=== PATIENT | male | born 1975 | race Caucasian/White ===

== ENCOUNTER 2017-05-16 08:16 | Emergency (ER) | payer OTHER ==
[~2017-05-16] VITALS: Ht 175.3 cm; Wt 132.5 kg
[2017-05-16 08:18] VITALS: Ht 175.3 cm; Wt 132.5 kg
[2017-05-16] MEDS ORDERED: morphine 4 MG/ML VIAL IV STA (08:40)
[2017-05-16] MEDS ORDERED: ONDANSETRON 4 MG INJ IV STA (08:40)
[2017-05-16] MEDS ORDERED: SOD CHLORIDE 0.9% 1,000 ML IV STA ×2 (08:40→10:40)
--- NOTE | 2017-05-16 09:05 | ERD ---
ER Documentation Chief Complaint Date/Time DATE: 05/16/17 TIME: 09:03 Chief Complaint rlq pain since last night HPI This is a 41-year-old male with no past medical history that presents to the emergency department complaining of a sudden onset of right lower quadrant abdominal pain that began at roughly 9 PM, 12 hours prior to arrival. The patient indicates that the onset of pain it was 10 out of 10 in intensity. The pain has been intermittent. He does indicate that it now started to radiate to his back and right upper quadrant. He indicates the pain is 6 out of 10 at this current time after he took Pepto-Bismol. He describes the pain as a sharp stabbing pain. There is no alleviating or exacerbating factors to the pain. He states he has had no fevers no shaking or chills. He states his urine has been very dark in color since the onset of his pain but he denies any frequency urgency or dysuria and no gross hematuria. He denies any recent travel. He has no past surgical history. He does indicate that over the past 4 weeks he has had intermittent loose watery stools. He denies any recent hospitalizations or antibiotic use. Indicates his last meal was at 6 PM, 15 hours prior to arrival. ROS All systems reviewed and are negative except as per history of present illness. Medications Home Meds Reported Medications Garlic (Garlic) 1 Each Tablet, 2 EACH PO NEEDED, TAB 05/16/17 Allergies Allergies: Coded Allergies: No Known Allergy (Unverified , 05/16/17) PMhx/Soc Medical and Surgical Hx: pt denies Medical Hx, pt denies Surgical Hx Hx Alcohol Use: No Hx Substance Use: No Hx Tobacco Use: No Physical Exam Vitals Vital Signs Date Time Temp Pulse Resp B/P Pulse Ox O2 Delivery O2 Flow Rate FiO2 05/16/17 08:18 98.1 97 18 164/94 99 Physical Exam Constitutional:Well-developed. Well-nourished. HEENT:Normocephalic. Atraumatic.Pupils were equal round reactive to light. Moist mucous membranes.No tonsillar exudates. Neck: No nuchal rigidity. No lymphadenopathy. No posterior cervical spine tenderness or step-offs. Respiratory: Not using accessory muscles of respiration.Lungs were clear to auscultation bilaterally. No rhonchi. No rales. No wheezing. Cardiovascular: Regular rate regular rhythm.No murmurs. No rubs were appreciated.S1, S2 normal. Distal pulses are palpable 2+ bilaterally. GI: Abdomen was soft. Tenderness in the right lower quadrant with negative psoas sign and obturator sign is negative. Non Distended. No pulsatile abdominal masses or bruits. No rebound. No guarding. Bowel sounds were present and normal. Muscle skeletal: Full range of motion of both the upper and lower extremities bilaterally.Normal muscle tone.No assymetrical calf tenderness or swelling. Skin: No petechia, no purpura. No lesions on the palms or the soles of the feet. No maculopapular rash. NEURO: Patient was alert, awake, orientated x3.No facial droop. Gait observed and normal with no ataxia.Speech had regular rate and rhythm. No focal neurological deficits. Result Diagram: 05/16/17 0850 05/16/17 0850 Results 24 hrs Laboratory Tests Test 05/16/17 08:50 05/16/17 09:06 White Blood Count 9.810^3/ul Red Blood Count 5.4710^6/ul Hemoglobin 15.8g/dl Hematocrit 46.7% Mean Corpuscular Volume 85.4fl Mean Corpuscular Hemoglobin 28.9pg Mean Corpuscular Hemoglobin Concent 33.8g/dl Red Cell Distribution Width 13.0% Platelet Count 29710^3/UL Mean Platelet Volume 10.2fl Neutrophils % 69.4% Lymphocytes % 22.6% Monocytes % 5.9% Eosinophils % 1.2% Basophils % 0.5% Nucleated Red Blood Cells % 0.0/100WBC Neutrophils # 6.810^3/ul Lymphocytes # 2.210^3/ul Monocytes # 0.610^3/ul Eosinophils # 0.110^3/ul Basophils # 0.110^3/ul Nucleated Red Blood Cells # 0.010^3/ul Prothrombin Time 12.7Sec Prothrombin Time Ratio 1.0 INR International Normalized Ratio 0.95 Activated Partial Thromboplast Time 31.9Sec Sodium Level 145mmol/L Potassium Level 5.1mmol/L Chloride Level 99mmol/L Carbon Dioxide Level 29mmol/L Anion Gap 22 Blood Urea Nitrogen 10mg/dl Creatinine 0.75mg/dl Glucose Level 120mg/dl Calcium Level 9.4mg/dl Total Bilirubin 0.6mg/dl Direct Bilirubin 0.00mg/dl Indirect Bilirubin 0.6mg/dl Aspartate Amino Transf (AST/SGOT) 109IU/L Alanine Aminotransferase (ALT/SGPT) 204IU/L Alkaline Phosphatase 97IU/L Troponin I < 0.012ng/ml Total Protein 9.3g/dl Albumin 5.0g/dl Globulin 4.30g/dl Albumin/Globulin Ratio 1.16 Amylase Level 71U/L Lipase 31U/L Urine Color STRAW Urine Clarity CLEAR Urine pH 6.0 Urine Specific Leiter 1.006 Urine Ketones NEGATIVEmg/dL Urine Nitrite NEGATIVEmg/dL Urine Bilirubin NEGATIVEmg/dL Urine Urobilinogen NEGATIVEmg/dL Urine Leukocyte Esterase NEGATIVELeu/ul Urine Microscopic RBC 2/HPF Urine Microscopic WBC 0/HPF Urine Hemoglobin 2+mg/dL Urine Glucose NEGATIVEmg/dL Urine Total Protein NEGATIVEmg/dl Current Medications Medications (Trade) Dose Ordered Sig/Teresa Route PRN Reason Start Time Stop Time Status Last Admin Dose Admin Sodium Chloride (NS) 1,000 ml @ 1,000 mls/hr Q1H STAT IV 05/16/17 08:40 05/16/17 09:39 DC 05/16/17 08:48 Morphine Sulfate (morphine) 4 mg ONCE STAT IV 05/16/17 08:40 05/16/17 08:42 DC 05/16/17 08:50 Ondansetron HCl (Zofran Inj) 4 mg ONCE STAT IV 05/16/17 08:40 05/16/17 08:42 DC 05/16/17 08:49 IV Flush 10 ml 10 ml STK-MED ONCE .ROUTE 05/16/17 09:54 05/16/17 09:55 DC Sodium Chloride (NS) 100 ml @ ud STK-MED ONCE .ROUTE 05/16/17 09:54 05/16/17 09:55 DC Iohexol 150 ml 150 ml STK-MED ONCE .ROUTE 05/16/17 09:54 05/16/17 09:55 DC Sodium Chloride (NS) 1,000 ml @ 1,000 mls/hr Q1H STAT IV 05/16/17 10:40 05/16/17 11:39 DC 05/16/17 10:55 Ketorolac Tromethamine (Toradol) 30 mg ONCE STAT IV 05/16/17 10:40 05/16/17 10:41 DC 05/16/17 10:55 Tamsulosin HCl 0.4 mg 0.4 mg ONCE ONCE PO 05/16/17 11:00 05/16/17 11:01 DC 05/16/17 11:03 Ciprofloxacin/ Dextrose (Cipro Ivpb) 200 ml @ 200 mls/hr ONCE ONCE IVPB 05/16/17 11:00 05/16/17 11:59 DC 05/16/17 11:02 Procedures/MDM This patient presented to the emergency department with abdominal pain and was seen and evaluated by myself. My differential diagnosis included but was not limited to abdominal aortic aneurysm, appendicitis, pancreatitis, perforated peptic ulcer, perforated viscus, Boerhaaves syndrome or visceral pain such as diverticulitis, DKA, esophagitis, hepatitis or bowel obstruction. The patient was placed on a cardiac surgeon, continuous pulse oximetry, and IV access was established by nursing staff. The patient received intravenous morphine and Zofran for analgesic control I did obtain a 12-lead EKG tracing to rule out atypical myocardial infarction. 12 Lead EKG tracing ordered and reviewed by myself showed: Normal sinus rhythm of 80 bpm and no arrhythmia. IN interval normal. QRS duration normal. No ST segment elevation No ST segment depression. No changes consistent with acute ischemia. I obtained a CT scan of the abdomen on reviewed by the radiologist as well as myself and indicated the followin mm obstructing calculus lodged within the right ureterovesical junction with mild ipsilateral hydroureteronephrosis and perinephric inflammation. Normal appendix. Hepatic steatosis. The patient had mild transaminitis. His BUN and creatinine were within normal limits. The patient had received venous morphine Dilaudid Toradol and was given Flomax. The patient was making urine without any difficulty. The patient had a urine culture obtained and was given IV ciprofloxacin to prevent secondary bacterial infection. I spoke with the patient indicated that I did feel he required admission due to an obstructive calculus causing obstructive uropathy. However the patient stated he wanted to be discharged home and would like to follow-up on an outpatient basis with urologist as he had to go to work. The patient will be sent home with prescription of ciprofloxacin Tiffin for analgesic control and I instructed him that he can return to the emergency department at any time due to the severity of his condition. The patient was discharged home in fair condition. They were instructed to return to the emergency department at any time if there was any worsening of their condition. The patient stated they would follow up with their PCP in the next 24-48 hours to initiate a suitable medication regimen under the care of their PCP as well as to allow their PCP to monitor any drug reactions. The patient was discharged home with prescriptions after they gave informed consent to the new medication. They were also fully informed by myself on the adverse effects and adverse drug interactions in order to provide adequate safeguards to prevent possible adverse reactions to medications. Departure Diagnosis: Primary Impression: Kidney stone on right side Condition: SHARMILA Lopez May 16, 2017 09:05
--- NOTE | 2017-05-16 09:13 | RADRPT ---
PROCEDURE: XR Chest. CLINICAL INDICATION: Shortness of breath. TECHNIQUE: A single portable view of the chest was obtained. COMPARISON: None FINDINGS: The cardiomediastinal silhouette is within normal limits. The lungs and pleural spaces are clear. The soft tissues and osseous structures are unremarkable. IMPRESSION: No acute cardiopulmonary disease. RPTAT: HPNM Physician Lilian Date Time Electronically viewed and signed by Pito Dawn Physician on 05/16/2017 09:12 /
[2017-05-16 09:18] LABS: BASOPHIL # 0.1 10^3/ul (0.0-0.1); BASOPHILS % 0.5 % (0.0-2.0); EOSINOPHILS # 0.1 10^3/ul (0.0-0.5); EOSINOPHILS % 1.2 % (0.0-7.0); HEMATOCRIT 46.7 % (42.0-52.0); HEMOGLOBIN 15.8 g/dl (14.0-18.0); LYMPHOCYTES # 2.2 10^3/ul (0.8-2.9); LYMPHOCYTES % 22.6 % (15.0-51.0); MEAN CORPUSCULAR HEMOGLOBIN 28.9 pg (29.0-33.0); MEAN CORPUSCULAR HGB CONC 33.8 g/dl (32.0-37.0); MEAN CORPUSCULAR VOLUME 85.4 fl (82.0-101.0); MEAN PLATELET VOLUME 10.2 fl (7.4-10.4); MONOCYTE # 0.6 10^3/ul (0.3-0.9); MONOCYTES % 5.9 % (0.0-11.0); NEUTROPHIL # 6.8 10^3/ul (1.6-7.5); NEUTROPHILS % 69.4 % (39.0-77.0); PLATELET COUNT 251 10^3/UL (140-415); RED BLOOD COUNT 5.47 10^6/ul (4.70-6.10); WHITE BLOOD COUNT 9.8 10^3/ul (4.8-10.8)
[2017-05-16 09:31] LABS: ADD UMIC YES; UR ASCORBIC ACID NEGATIVE (NEGATIVE); UR BILIRUBIN (Dip) NEGATIVE (NEGATIVE); UR BLOOD (Dip) 2+ mg/dL (NEGATIVE); UR CLARITY CLEAR (CLEAR); UR COLOR STRAW (YELLOW); UR GLUCOSE (Dip) NEGATIVE (NEGATIVE); UR KETONES (Dip) NEGATIVE (NEGATIVE); UR LEUKOCYTE ESTERASE (Dip) NEGATIVE Leu/ul (NEGATIVE); UR NITRITE (Dip) NEGATIVE (NEGATIVE); UR RBC 2 /HPF (0-5); UR SPECIFIC GRAVITY (Dip) 1.006 (1.003-1.030); UR TOTAL PROTEIN (Dip) NEGATIVE (NEGATIVE); UR UROBILINOGEN (Dip) NEGATIVE (NEGATIVE)
[2017-05-16 09:38] LABS: INR 0.95; PROTIME 12.7 Sec (12.2-14.2)
[2017-05-16 09:39] LABS: PARTIAL THROMBOPLASTIN TIME 31.9 Sec (25.0-35.0)
[2017-05-16 09:41] LABS: ALANINE AMINOTRANSFERASE 204 IU/L (13-69); ALBUMIN/GLOBULIN RATIO 1.16; ALKALINE PHOSPHATASE 97 IU/L (42-121); AMYLASE 71 U/L (11-123); ANION GAP 22 (8-16); ASPARTATE AMINO TRANSFERASE 109 IU/L (15-46); BILIRUBIN,INDIRECT 0.6 mg/dl (0-1.1); BILIRUBIN,TOTAL 0.6 mg/dl (0.2-1.3); BLOOD UREA NITROGEN 10 mg/dl (7-20); CALCIUM 9.4 mg/dl (8.4-10.2); CARBON DIOXIDE 29 mmol/L (21-31); CHLORIDE 99 mmol/L (97-110); CREATININE 0.75 mg/dl (0.61-1.24); GLUCOSE 120 mg/dl (70-220); POTASSIUM 5.1 mmol/L (3.5-5.1); SODIUM 145 mmol/L (135-144); TOTAL PROTEIN 9.3 g/dl (6.1-8.1)
[2017-05-16 09:54] LABS: TROPONIN-I < 0.012 ng/ml (0.00-0.12)
[2017-05-16] MEDS ORDERED: IOHEXOL 300MG/ML 150 ML BTL ONE (09:54)
[2017-05-16] MEDS ORDERED: SOD CHLORIDE 0.9% 100 ML ONE (09:54)
--- NOTE | 2017-05-16 10:13 | RADRPT ---
PROCEDURE: CT Abdomen and Pelvis with contrast. CLINICAL INDICATION: Abdominal pain. TECHNIQUE: Routine abdominopelvic CT was performed following administration of intravenous contras t and reformatted in the axial, coronal, sagittal planes. Intravenous contrast: 100 cc of Omnipaque 300. Radiation dose: CTDIvol (mGy) = 23.8; total DLP (mGy-cm) = 1631. One or more of the following radiation dose techniques were used: -Automated exposure control. -Adjust of the mA and/or kV according to patient size. -Use of iterative reconstruction technique. COMPARISON: None. FINDINGS: There are steatotic changes suggested within the liver. Gallbladder, biliary system, pancreas, adre nal glands, and spleen are normal. There is a 4 mm obstructing calculus lodged within the right UVJ with mild ipsilateral hydroureteron ephrosis and perinephric inflammation. Normal left kidney and collecting system. No abnormal bowel wall thickening or inflammation. The appendix is normal. No free fluid or fluid collection. IMPRESSION: 4 mm obstructing calculus lodged within the right ureterovesical junction with mild ipsilateral hydr oureteronephrosis and perinephric inflammation. Normal appendix. Hepatic steatosis. RPTAT: EE .Johnathan Enamorado MD, MD Date Time Electronically viewed and signed by .Johnathan Enamorado MD, on 05/16/2017 10:18 .C/
[2017-05-16] MEDS ORDERED: KETOROLAC 30 MG INJ IV STA (10:40)
[2017-05-16] MEDS ORDERED: TAMSULOSIN (SR) 0.4 MG CAP PO ONE (11:00)
[2017-05-16] MEDS ORDERED: CIPROFLOXACIN 400MG/D5W 200 ML IVPB ONE (11:00)
[2017-05-16] MEDS ORDERED: GARL1TAB PO (11:13)
[2017-05-16] MEDS ORDERED: HYDR-906 PO (12:08)
[2017-05-16] MEDS ORDERED: CIPR500T4 PO (12:08)
[2017-05-16] MEDS ORDERED: TAMS-14 PO (12:08)
[2017-05-16 12:31] VITALS: BP 126/76; PULSE 74; RESP 19; TEMP 98.4
== END 2017-05-16 12:34 | disposition home or self-care (01) ==
LOC: FTE 08:16
DX: N20.0 Calculus of kidney (principal)
CPT/HCPCS: 36415; 71010; 74177; 80053; 81001; 82150; 83690; 84484; 85025; 85610; 85730; 87040; 87086; 93005; 96361; 96374; 96375; J0744; J1885; J2270; J2405; J7030; Q9967; Z7502; Z7610

== ENCOUNTER 2018-10-15 10:53 | Emergency (ER) | payer MEDICAID, OTHER ==
[~2018-10-15] VITALS: Wt 133.4 kg
[~2018-10-15 10:53] MED LIST: CIPR500T4 PO; GARL1TAB2 PO; HYDR-4011 PO; TAMS-14 PO
[2018-10-15] MEDS ORDERED: SOD CHLORIDE 0.9% 1,000 ML IV STA (12:03)
--- NOTE | 2018-10-15 12:54 | ERD ---
ER Documentation Chief Complaint Chief Complaint LEFT SIDED ABD PAIN X 1 WEEK DENIES N/V HPI This is a 42-year-old male with a history of abdominal bloating and cramping in the past and GERD who presents to the ER for evaluation of left-sided abdominal pain. The patient states that he has had left-sided abdominal pain for 1 weeks duration. He denies any nausea or vomiting associated with this denies any fevers or chills or diarrhea. Patient came to the ER today for evaluation of symptoms and denies any aggravating or relieving factors for his symptoms ROS All systems reviewed and are negative except as per history of present illness. Medications Home Meds Discontinued Reported Medications Garlic (Garlic) 1 Each Tablet, 2 EACH PO NEEDED, TAB 05/16/17 Discontinued Scripts Hydrocodone/Acetaminophen (Goodwin 5-325 Tablet) 1 Each Tablet, 1 TAB PO Q6H PRN for PAIN, #20 TAB Prov:SHARMILA BARROSO MD 05/16/17 Ciprofloxacin Hcl* (Ciprofloxacin Hcl*) 500 Mg Tablet, 500 MG PO BID for 10 Days, TAB Prov:SHARMILA BARROSO MD 05/16/17 Tamsulosin Hcl* (Flomax*) 0.4 Mg Cap.er.24h, 0.4 MG PO QPM, #30 CAP Prov:SHARMILA BARROSO MD 05/16/17 Allergies Allergies: Coded Allergies: No Known Allergy (Unverified , 05/16/17) PMhx/Soc Medical and Surgical Hx: pt denies Medical Hx Hx Alcohol Use: Yes Hx Substance Use: No Hx Tobacco Use: No Smoking Status: Never smoker Physical Exam Vitals Vital Signs Date Temp Pulse Resp B/P (MAP) Pulse Ox O2 O2 Flow FiO2 Time Delivery Rate 10/15/18 98.1 98 18 153/93 99 11:03 (113) Physical Exam INITIAL VITAL SIGNS: Reviewed by me GENERAL: The patient is well developed and appropriate for usual state of health in no apparent distress HEENT: Pupils equal, round, and reactive to light. EOMI. There is no scleral icterus. NECK: C-spine is soft and supple, there is no meningismus. There is no cervical lymphadenopathy. LUNGS: Clear to auscultation bilaterally. There are no rales, wheezes or rhonchi. HEART: Regular rate and rhythm, no murmurs, clicks, rubs or gallops. ABDOMEN: Tenderness to palpation, otherwise, negative Riley sign, soft, non- tender, non-distended. There are bowel sounds in all four quadrants. No rebound or guarding. EXTREMITIES: There is no peripheral cyanosis or edema. No focal swelling or erythema. NEUROLOGICAL: The patient moves all four extremities with 5/5 strength. Cranial nerves II - XII are intact. Normal gait. Alert and oriented SKIN: Small 1 cm x 1 cm raised circular lesion noted on the right mid thigh, no skin sloughing, no cellulitis, there is no apparent rash or petechiae. HEME/LYMPHATIC: There is no evidence of excessive bruising or lymphedema. PSYCHIATRIC: The patient does not appear anxious or depressed. Result Diagram: 10/15/18 1203 10/15/18 1203 Results 24 hrs Laboratory Tests Test 10/15/18 12:03 White Blood Count 6.9 10^3/ul Red Blood Count 5.30 10^6/ul Hemoglobin 15.2 g/dl Hematocrit 44.9 % Mean Corpuscular Volume 84.7 fl Mean Corpuscular Hemoglobin 28.7 pg Mean Corpuscular Hemoglobin Concent 33.9 g/dl Red Cell Distribution Width 13.8 % Platelet Count 322 10^3/UL Mean Platelet Volume 10.8 fl Immature Granulocytes % 0.100 % Neutrophils % 41.5 % Lymphocytes % 44.4 % Monocytes % 7.8 % Eosinophils % 5.5 % Basophils % 0.7 % Nucleated Red Blood Cells % 0.0 /100WBC Immature Granulocytes # 0.010 10^3/ul Neutrophils # 2.9 10^3/ul Lymphocytes # 3.1 10^3/ul Monocytes # 0.5 10^3/ul Eosinophils # 0.4 10^3/ul Basophils # 0.1 10^3/ul Nucleated Red Blood Cells # 0.0 10^3/ul Urine Color YELLOW Urine Clarity CLEAR Urine pH 6.0 Urine Specific [place] 1.018 Urine Ketones NEGATIVE mg/dL Urine Nitrite NEGATIVE mg/dL Urine Bilirubin NEGATIVE mg/dL Urine Urobilinogen NEGATIVE mg/dL Urine Leukocyte Esterase NEGATIVE Isaac/ul Urine Hemoglobin NEGATIVE mg/dL Urine Glucose NEGATIVE mg/dL Urine Total Protein NEGATIVE mg/dl Sodium Level 144 mmol/L Potassium Level 4.3 mmol/L Chloride Level 104 mmol/L Carbon Dioxide Level 29 mmol/L Anion Gap 11 Blood Urea Nitrogen 13 mg/dl Creatinine 0.66 mg/dl Est Glomerular Filtrat Rate mL/min > 60 mL/min Glucose Level 111 mg/dl Calcium Level 9.6 mg/dl Total Bilirubin 0.3 mg/dl Direct Bilirubin 0.00 mg/dl Indirect Bilirubin 0.3 mg/dl Aspartate Amino Transf (AST/SGOT) 82 IU/L Alanine Aminotransferase (ALT/SGPT) 151 IU/L Alkaline Phosphatase 87 IU/L Total Protein 7.8 g/dl Albumin 4.6 g/dl Globulin 3.20 g/dl Albumin/Globulin Ratio 1.43 Lipase 67 U/L Current Medications Medications Dose Sig/Teresa Start Time Status Last (Trade) Ordered Route PRN Stop Time Admin Dose Reason Admin Sodium 1,000 ml @ Q1H STAT 10/15/18 10/15/18 Chloride 1,000 mls/hr IV 12:03 12:12 10/15/18 13:02 Procedures/MDM CT abdomen pelvis without: No evidence of urolithiasis, obstructive uropathy, diverticulitis or appendicitis. This 42-year-old male presents to the ER for evaluation of abdominal pain. On my exam he has slight epigastric tenderness to palpation however no peritoneal signs. Lab work was obtained which is normal, CT the abdomen pelvis shows no signs of obstruction. The patient was incidentally found to have what appears to be tinea infection of the skin. The patient is likely suffering from gastritis and GERD and I advised him to alter his diet. The patient verbalized understanding and will be discharged home with a prescription for Zantac and clotrimazole. Differential diagnoses entertained was broad with potential high acuity. Patient has been evaluated for appendicitis, cholecystitis, and other high risk medical and surgical causes of abdominal pain. Ultimately the patient's evaluation is nondiagnostic. Based on the patient's lack of risk factors, as well as the patient's clinical, laboratory, and imaging data, the patient appears to be low risk for these high risk causes of abdominal pain. Departure Diagnosis: Primary Impression: Abdominal pain Additional Impression: Tinea corporis Condition: MARVA Ellsworth DO Oct 15, 2018 12:54
[2018-10-15] MEDS ORDERED: RANI150T35 PO (12:55)
[2018-10-15] MEDS ORDERED: CLOT30CR24 TOP (12:55)
== END 2018-10-15 13:18 | disposition home or self-care (01) ==
LOC: E/R 10:53
DX: R10.9 Unspecified abdominal pain (principal); B35.4 Tinea corporis
CPT/HCPCS: 74176; 80053; 81003; 83690; 85025; J7030; 36415